=== PATIENT | male | born 1985 | race Caucasian/White ===

== ENCOUNTER 2020-02-26 23:30 | Emergency (ER) | payer SELFPAY ==
[~2020-02-26] VITALS: Ht 175.3 cm; Wt 95.3 kg
[2020-02-26 23:35] VITALS: BP 145/95
--- NOTE | 2020-02-26 23:35 | NUR ---
PT TAKEN TO CHAIR Michael.
--- NOTE | 2020-02-26 23:52 | NUR ---
PATIENT BIB [place] [facility] DEPT. PATIENT EXAMINED BY DR. COLEY. PATIENT MEDICALLY CLEARED AND RELEASED IN CUSTODY IN STABLE CONDITION. ORIGINAL PRE-BOOK FORM GIVEN TO OFFICER DESIRE.
[2020-02-26 23:53] VITALS: BP 145/95
--- NOTE | 2020-02-26 23:53 | NUR ---
Patient discharged with v/s stable. Written and verbal after care instructions given and explained. Patient verbalized understanding. Police with in custody. All questions addressed prior to discharge. Advised to follow up with PMD.
== END 2020-02-26 23:53 ==
LOC: MED 23:30
DX: Z02.89 Encounter for other administrative examinations (principal); Z04.1 Encounter for examination and observation following transport accident
CPT/HCPCS: 96372; 99283; 99284